=== PATIENT | male | born 1945 | race African-American/Black ===

== ENCOUNTER → 2020-06-13 | Outpatient (CLI) | payer MEDICARE ==
--- NOTE | 2020-06-13 14:14 | RAD ---
Examination: Ultrasound kidneys History: Chronic kidney disease stage II COMPARISON: None available. FINDINGS: The right kidney measures 9.8 x 4.8 x 5.1 cm . The left kidney measures 11.7 x 5.4 x 5.6 cm. Multiple cystic structures identified in the left kidney with the largest measuring 5 cm likely cysts. Modera te enlarged prostate. IMPRESSION: 1. Multiple left renal cysts with the largest measuring 5 cm. Follow-up examination is recommended do cument stability. 2. Moderate enlarged prostate gland. Electronically signed by: Angelito Biggs MD (06/13/2020 2:11 PM) [id number]
== END ==
LOC: US 11:17
PROVIDERS: ATTEND Internal Medicine
DX: N28.1 Cyst of kidney, acquired (principal); N18.2 Chronic kidney disease, stage 2 (mild); N40.0 Benign prostatic hyperplasia without lower urinary tract symptoms
CPT/HCPCS: 76770

== ENCOUNTER 2020-12-03 23:47 | Emergency (ER) | payer OTHER, MEDICARE ==
[~2020-12-03] VITALS: Ht 188 cm; Wt 81.8 kg
[2020-12-04 00:07] VITALS: BP 154/89
[2020-12-04] MEDS ORDERED: TRAM-48 PO (00:41)
[2020-12-04] MEDS ORDERED: CYCL10TA2 PO (00:41)
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
[2020-12-04] MEDS: ACETAMINOPHEN 325 MG TABLET. PO ONE (00:48)
== END 2020-12-04 00:51 | disposition home or self-care (01) ==
LOC: ER 23:47
DX: S16.1XXA Strain of muscle, fascia and tendon at neck level, initial encounter (principal); S46.911A Strain of unspecified muscle, fascia and tendon at shoulder and upper arm level, right arm, initial encounter; S39.012A Strain of muscle, fascia and tendon of lower back, initial encounter; V49.49XA Driver injured in collision with other motor vehicles in traffic accident, initial encounter; Y92.488 Other paved roadways as the place of occurrence of the external cause; Y93.89 Activity, other specified; Y99.8 Other external cause status
CPT/HCPCS: 99283

== ENCOUNTER → 2021-04-24 | Outpatient (CLI) | payer OTHER, MEDICARE ==
[~2021-04-24] MED LIST: CYCL10TA19 PO; TRAM-48 PO
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
== END ==
LOC: KCIC MRI 14:31
PROVIDERS: ATTEND Internal Medicine
DX: M19.011 Primary osteoarthritis, right shoulder (principal); R60.0 Localized edema; M75.51 Bursitis of right shoulder; M75.31 Calcific tendinitis of right shoulder
CPT/HCPCS: 73221